=== PATIENT | female | born 1940 | race Caucasian/White ===

== ENCOUNTER 2019-10-24 04:01 | Inpatient (IN) | payer MEDICAID, OTHER ==
[~2019-10-24] VITALS: Ht 144.8 cm; Wt 77.9 kg
[~2019-10-24 04:01] MED LIST: ASPI-496 PO; ASPI81TA45 PO; CEFD300C37 PO; DILT240C81 PO; HYDR50TA3 PO; IBUP100T9 PO; METR500T PO; RANI-244 PO; SIMV5TAB14 PO
--- NOTE | 2019-10-24 04:14 | NUR ---
THIS IS A 79Y F BIB EMS FROM [facility]. PT RECENTLY HAD GALLBLADDER SX AND WAS RECOVERING AND DOING PT AT [place]. STAFF NOTICED PT TO BE ALTERED AROUND 0305 PT WAS NOT SPEAKING/ INTERACTING WITH STAFF SHE NORMALLY DOES. PT CONTINUES TO BE NONVERBAL FAMILY AT BEDSIDE. BILAT LOWER EXTREM WEAKNESS NOTED. PER FAM HX OF CVA AND L SIDED WEAKNESS. PT CONNECTED TO ALL MONITORING, TECH AT BEDSIDE FOR EKG AT THIS TIME.
[2019-10-24] MEDS ORDERED: SODIUM CHLORIDE FLUSH 10ML SYR IVF ONE (05:00)
--- NOTE | 2019-10-24 05:00 | NUR ---
SPOKE WITH ALONSO BENSON ABOUT URINE SAMPLE. PER KELLEY AND PT OK TO STRAIGHT CATH.
--- NOTE | 2019-10-24 05:04 | NUR ---
LAB AT BEDSIDE FOR BLOOD DRAW
--- NOTE | 2019-10-24 05:11 | NUR ---
PT TO CT AT THIS TIME
[2019-10-24 05:20] LABS: BASOPHILS # (AUTO) 0.05 x10^3/uL (0-0.1); BASOPHILS % (AUTO) 1 % (0-1); EOSINOPHILS # (AUTO) 0.32 x10^3/uL (0-0.4); EOSINOPHILS % (AUTO) 4 % (1-7); LYMPHOCYTES # (AUTO) 2.01 x10^3/uL (1-3.4); LYMPHOCYTES % (AUTO) 24 % (22-44); MD NO; MEAN CORPUSCULAR HEMOGLOBIN 31.6 pg (27.0-34.8); MEAN CORPUSCULAR HGB CONC 33.9 g/dL (32.4-35.8); MEAN CORPUSCULAR VOLUME 93.2 fL (80-100); MEAN PLATELET VOLUME 8.2 fL (7.4-10.4); MONOCYTES # (AUTO) 0.59 x10^3/uL (0.2-0.8); MONOCYTES % (AUTO) 7 % (2-9); NEUTROPHILS # (AUTO) 5.29 x10^3/uL (1.8-6.8); NEUTROPHILS % (AUTO) 64 % (42-75); PLATELET COUNT 322 x10^3/uL (130-400); RED BLOOD COUNT 2.98 x10^6/uL (3.82-5.3); RED CELL DISTRIBUTION WIDTH 14.7 % (9.6-15.2)
[2019-10-24 05:26] LABS: INTERNATIONAL NORMALIZED RATIO 1.04 (0.93-1.1)
[2019-10-24 05:28] LABS: ALANINE AMINOTRANSFERASE 13 U/L (12-78); ALBUMIN 2.8 g/dL (3.4-5.0); ANION GAP 8 mmol/L (5-15); CALCIUM 9.6 mg/dL (8.5-10.1); CHLORIDE 113 mmol/L (98-107); CREATININE 1.78 mg/dL (0.55-1.02)
[2019-10-24 05:32] LABS: ALKALINE PHOSPHATASE 62 U/L (45-117); BILIRUBIN,TOTAL 0.4 mg/dL (0.2-1.0); TOTAL PROTEIN 7.1 g/dL (6.4-8.2); TROPONIN I 0.019 ng/mL (0.000-0.045)
--- NOTE | 2019-10-24 05:40 | NUR ---
STRAIGHT CATH PERFORMED PER POLICY, URINE SENT TO LAB. PT ABLE TO LIFT HIPS WITHOUT DIFFICULTY. FAMILY BACK AT BEDSIDE.
--- NOTE | 2019-10-24 05:58 | NUR ---
MD AT BEDSIDE TO ASSESS PT
[2019-10-24 06:07] LABS: MICROSCOPIC AUTO
[2019-10-24 06:13] LABS: CULTURE INDICATED? NO
--- NOTE | 2019-10-24 06:14 | NUR ---
TALIA SILVA SENT TO PHARM FOR MEDS AT THIS TIME
[2019-10-24] MEDS ORDERED: ASPIRIN 300 MG SUPP PR ONE (06:30)
--- NOTE | 2019-10-24 07:00 | NUR ---
REC BS REPORT FAMILY IN THE ROOM
--- NOTE | 2019-10-24 07:15 | NUR ---
ASSISTED DR CHAVES WITH NEURO EVAL
[2019-10-24] MEDS ORDERED: hydrALAzine 20 MG/ML, 1ML IVPush PRN (07:30)
[2019-10-24] MEDS ORDERED: POTASSIUM CHLORIDE 20 MEQ TAB.ER.PRT PO ONE (07:30)
[2019-10-24] MEDS ORDERED: HEPARIN wt. based STROKE protocol MC PRN (08:00)
--- NOTE | 2019-10-24 08:00 | NUR ---
PT MOVED TO ROOM 4
[2019-10-24] MEDS ORDERED: HEPARIN 25,000 UNITS/250ML PMX 250 ML IV PRN (08:30)
[2019-10-24] MEDS ORDERED: ASPIRIN 81 MG TABLET EC PO SCH (09:00)
[2019-10-24] MEDS ORDERED: DILTIAZEM 240 MG CAP.ER.24H PO SCH (09:00)
[2019-10-24 09:27] LABS: CHOL/HDL RATIO 2.6; LDL/HDL RATIO 0.9 (0.5-3.0)
--- NOTE | 2019-10-24 10:00 | NUR ---
UNSUCCESSFUL IN MULTI ATTEMPTS TO ASSES PT ABILITY TO SWALLOW PO
--- NOTE | 2019-10-24 10:25 | NUR ---
CALLED DR GARDNER RE PO MED AND SWALLOW EVAL HE WILL REVIEW MEDS
--- NOTE | 2019-10-24 11:00 | NUR ---
PATRICK GARDNER HOLD ALL MEDS UNTIL SPEACH TX
--- NOTE | 2019-10-24 11:07 | NUR ---
CALLED NERISSA VELEZ FOR SWALLOW EVAL LM
--- NOTE | 2019-10-24 12:05 | NUR ---
REPORT CALLED TO THE FLOOR
[2019-10-24 12:48] VITALS: BP 172/106
--- NOTE | 2019-10-24 14:20 | NUR ---
REC: FLOORING INSTALLER IN ACUTE REHAB CHOPPED/ THINS Addendum: 10/24/19 at [address] Amended: Links added.
[2019-10-24] MEDS ORDERED: POTASSIUM CHLORIDE 20 MEQ TAB.ER.PRT ONE (14:32)
[2019-10-24] MEDS: LOSARTAN 50MG TABLET PO SCH (14:35)
[2019-10-24] MEDS: SENNA/DOCUSATE TABLET PO SCH (14:36)
[2019-10-24] MEDS: DILTIAZEM 120 MG CAP.ER.24H PO SCH (14:37)
[2019-10-24 15:10] VITALS: BP 159/111
[2019-10-24 20:10] VITALS: BP 169/105
[2019-10-24] MEDS: ATORVASTATIN 20 MG TABLET PO SCH (20:31)
[2019-10-25 01:59] VITALS: BP 163/88
[2019-10-25 03:37] LABS: BASOPHILS # (AUTO) 0.05 x10^3/uL (0-0.1); BASOPHILS % (AUTO) 1 % (0-1); EOSINOPHILS # (AUTO) 0.24 x10^3/uL (0-0.4); EOSINOPHILS % (AUTO) 2 % (1-7); LYMPHOCYTES # (AUTO) 2.17 x10^3/uL (1-3.4); LYMPHOCYTES % (AUTO) 22 % (22-44); MD NO; MEAN CORPUSCULAR HEMOGLOBIN 30.9 pg (27.0-34.8); MEAN CORPUSCULAR HGB CONC 33.2 g/dL (32.4-35.8); MEAN CORPUSCULAR VOLUME 92.9 fL (80-100); MEAN PLATELET VOLUME 8.2 fL (7.4-10.4); MONOCYTES % (AUTO) 7 % (2-9); NEUTROPHILS # (AUTO) 6.93 x10^3/uL (1.8-6.8); NEUTROPHILS % (AUTO) 69 % (42-75); PLATELET COUNT 330 x10^3/uL (130-400); RED BLOOD COUNT 3.26 x10^6/uL (3.82-5.3); RED CELL DISTRIBUTION WIDTH 14.9 % (9.6-15.2)
[2019-10-25 03:39] LABS: ANION GAP 7 mmol/L (5-15); CHLORIDE 113 mmol/L (98-107); CREATININE 1.69 mg/dL (0.55-1.02)
[2019-10-25 07:16] VITALS: BP 155/82
[2019-10-25] MEDS: LOSARTAN 50MG TABLET PO SCH (08:15)
[2019-10-25] MEDS: SENNA/DOCUSATE TABLET PO SCH (08:15)
[2019-10-25] MEDS: DILTIAZEM 120 MG CAP.ER.24H PO SCH (08:16)
[2019-10-25] MEDS ORDERED: ASPIRIN 300 MG SUPP PR SCH (09:00)
[2019-10-25 12:16] VITALS: BP 151/82
[2019-10-25] MEDS: APIXABAN 5 MG TABLET PO SCH ×2 (12:32→20:25)
[2019-10-25 19:28] VITALS: BP 139/74
[2019-10-25] MEDS: ATORVASTATIN 20 MG TABLET PO SCH (20:25)
[2019-10-26] MEDS: ACETAMINOPHEN 325 MG TABLET PO PRN ×4 (01:17→19:41)
[2019-10-26 01:50] VITALS: BP 139/76
[2019-10-26 05:56] LABS: BASOPHILS # (AUTO) 0.03 x10^3/uL (0-0.1); BASOPHILS % (AUTO) 0 % (0-1); EOSINOPHILS # (AUTO) 0.21 x10^3/uL (0-0.4); EOSINOPHILS % (AUTO) 2 % (1-7); LYMPHOCYTES # (AUTO) 1.47 x10^3/uL (1-3.4); LYMPHOCYTES % (AUTO) 13 % (22-44); MD NO; MEAN CORPUSCULAR HGB CONC 33.1 g/dL (32.4-35.8); MEAN CORPUSCULAR VOLUME 93.4 fL (80-100); MEAN PLATELET VOLUME 8.7 fL (7.4-10.4); MONOCYTES # (AUTO) 0.74 x10^3/uL (0.2-0.8); MONOCYTES % (AUTO) 7 % (2-9); NEUTROPHILS % (AUTO) 78 % (42-75); PLATELET COUNT 320 x10^3/uL (130-400); RED BLOOD COUNT 3.08 x10^6/uL (3.82-5.3)
[2019-10-26 05:58] LABS: ALBUMIN 2.8 g/dL (3.4-5.0); ANION GAP 7 mmol/L (5-15); CALCIUM 9.6 mg/dL (8.5-10.1); CHLORIDE 113 mmol/L (98-107)
[2019-10-26 05:59] LABS: CREATININE 1.89 mg/dL (0.55-1.02)
[2019-10-26 07:12] VITALS: BP 154/93
[2019-10-26] MEDS: SENNA/DOCUSATE TABLET PO SCH (08:32)
[2019-10-26] MEDS: LOSARTAN 50MG TABLET PO SCH (08:32)
[2019-10-26] MEDS: APIXABAN 5 MG TABLET PO SCH ×2 (08:32→19:41)
[2019-10-26] MEDS: DILTIAZEM 120 MG CAP.ER.24H PO SCH (08:32)
[2019-10-26 10:52] VITALS: BP 170/92
[2019-10-26 15:14] VITALS: BP 136/86
[2019-10-26] MEDS ORDERED: LIDODERM 5% PATCH TD SCH (16:30)
[2019-10-26 19:35] VITALS: BP 172/86
[2019-10-26] MEDS: ATORVASTATIN 20 MG TABLET PO SCH (19:41)
[2019-10-26] MEDS ORDERED: LIDODERM 5% PATCH TD PRN (21:00)
[2019-10-27 01:11] VITALS: BP 144/78
[2019-10-27 06:15] VITALS: BP 158/82
[2019-10-27] MEDS: ACETAMINOPHEN 325 MG TABLET PO PRN (08:02)
[2019-10-27] MEDS: APIXABAN 5 MG TABLET PO SCH (08:02)
[2019-10-27] MEDS: SENNA/DOCUSATE TABLET PO SCH (08:02)
[2019-10-27] MEDS: DILTIAZEM 120 MG CAP.ER.24H PO SCH (08:02)
[2019-10-27] MEDS: LOSARTAN 50MG TABLET PO SCH (08:03)
[2019-10-27] MEDS ORDERED: LIDODERM REMOVE PATCH NOTE XX SCH (09:00)
[2019-10-27] MEDS ORDERED: LOSA50TA2 PO (10:41)
[2019-10-27] MEDS ORDERED: APIX5TAB PO (10:41)
[2019-10-27] MEDS ORDERED: DILT360C32 PO (10:41)
[2019-10-27 12:15] VITALS: BP 144/78
[2019-10-27] MEDS ORDERED: LIDODERM 5% PATCH TD SCH (16:30)
== END 2019-10-27 14:24 | disposition home health service (06) | DRG 64 ==
LOC: ED 08:27 → EDIP 08:51 → 4EST 12:22 → DCLOUNGE 10-27 14:10
PROVIDERS: ADMIT Internal Medicine; ATTEND Family Medicine
PROC: 0T9B70Z Drainage of Bladder with Drainage Device, Via Natural or Artificial Opening (ICD-10-PCS; principal; 2019-10-24)
DX: I63.9 Cerebral infarction, unspecified (principal); I50.31 Acute diastolic (congestive) heart failure; D68.69 Other thrombophilia; I13.0 Hypertensive heart and chronic kidney disease with heart failure and stage 1 through stage 4 chronic kidney disease, or unspecified chronic kidney disease; N18.4 Chronic kidney disease, stage 4 (severe); I31.3 Pericardial effusion (noninflammatory); R47.01 Aphasia; D64.9 Anemia, unspecified; E16.2 Hypoglycemia, unspecified; E78.5 Hyperlipidemia, unspecified; Z96.651 Presence of right artificial knee joint; E87.6 Hypokalemia; Z60.2 Problems related to living alone; K21.9 Gastro-esophageal reflux disease without esophagitis; I48.91 Unspecified atrial fibrillation; Z80.1 Family history of malignant neoplasm of trachea, bronchus and lung; Z80.42 Family history of malignant neoplasm of prostate; Z82.49 Family history of ischemic heart disease and other diseases of the circulatory system; Z87.891 Personal history of nicotine dependence; Z98.51 Tubal ligation status; I69.344 Monoplegia of lower limb following cerebral infarction affecting left non-dominant side; Z90.49 Acquired absence of other specified parts of digestive tract; Z79.82 Long term (current) use of aspirin; Z79.899 Other long term (current) drug therapy; Z98.49 Cataract extraction status, unspecified eye
CPT/HCPCS: 36415; 70450; 70551; 71045; 80048; 80053; 80061; 80069; 81001; 83735; 84484; 85025; 85520; 85610; 85730; 93005; 93880; 99285; G0378; 92523-GN; J0360